=== PATIENT | male | born 1975 | race Caucasian/White ===

== ENCOUNTER 2021-05-03 13:42 | Emergency (ER) | payer OTHER ==
[~2021-05-03] VITALS: Ht 177.8 cm; Wt 113.4 kg
[~2021-05-03 13:42] MED LIST: BUSPIRONE HCL10 MG PO; VENTOLIN HFA 1818 GM INH
[2021-05-03] MEDS ORDERED: ALLOPURINOL 10100 M3 PO (13:53)
[2021-05-03] MEDS ORDERED: WELLBUTRIN SR150 MG PO (13:53)
[2021-05-03] MEDS ORDERED: CRESTOR20 MG PO (13:53)
[2021-05-03 14:31] LABS: ABSOLUTE NEUTROPHILS 5.8 thou/uL (1.4-8.2); BASOPHILS 0.9 % (0.0-2.0); EOSINOPHILS 3.7 % (0.0-3.0); HEMATOCRIT 46.4 % (42.0-52.0); HEMOGLOBIN 15.8 gm/dL (14.0-18.0); LYMPHOCYTES 19.6 % (24.0-44.0); MCH 29.7 pg (26.0-34.0); MCV 87.5 fL (80.0-100.0); MONOCYTES 6.3 % (1.0-8.0); PLATELET COUNT 219 thou/uL (150-400); POLYS 69.5 % (36.0-66.0); RDW 14.6 % (10.5-14.5); WBC 8.3 thou/uL (4.0-11.0)
[2021-05-03 15:07] LABS: ANION GAP 9 mmol/L (7-16); BUN 10 mg/dL (7-18); CALCIUM 9.1 mg/dL (8.5-10.1); CHLORIDE 102 mmol/L (98-107); CO2 29 mmol/L (21-32); CREATININE 1.1 mg/dL (0.7-1.3); GLUCOSE 96 mg/dL (74-106); POTASSIUM 3.9 mmol/L (3.5-5.1); SODIUM 140 mmol/L (136-145)
[2021-05-03 15:17] LABS: ALBUMIN 4.3 g/dL (3.4-5.0); SGOT 18 U/L (15-37); SGPT 27 U/L (30-65); TOTAL BILIRUBIN 0.7 mg/dL (0.2-1.0); TOTAL PROTEIN 7.5 g/dL (6.4-8.2); TROPONIN-I <0.06 ng/mL (<0.06)
[2021-05-03 15:59] VITALS: BP 134/69
--- NOTE | 2021-05-04 07:50 | EKG ---
[address] [address] [place] [address] ELECTROCARDIOGRAM REPORT Name: JOSE BOYDMIA LANGFORDDANNI Room #: [facility] [id number] Admission: 05/03/21 Attend Phys: Discharge: 05/03/21 Date of : 73 Report #: [id number] [facility] ED Test Date: 2021-05-03 Test Time: 14:01:34 Pat Name: ESE BOYD Department: Room: Gender: It [employer] Development Manager: : 1975 Requested By: Donato Huff Order Number: [id number] MD: Raúl Villanueva Measurements Intervals [place] Rate: 64 P: 40 AR: 165 QRS: 13 QRSD: 106 T: 36 QT: 380 QTc: 392 Interpretive Statements Sinus rhythm RSR' in V1 or V2, right VCD or RVH Compared to ECG 01/15/2015 03:05:16 Right ventricular hypertrophy now present RSR' in V1 or V2 now present Electronically Signed On 05-04-2021 7:50:06 CDT by Raúl Villanueva [email or web address] <ELECTRONICALLY SIGNED> By: Raúl Villanueva MD, [facility] 05/04/21 0750 1401 140 Raúl Villanueva MD, [facility] /EPI
== END 2021-05-03 16:01 | disposition home or self-care (01) ==
LOC: ER 13:42
PROVIDERS: Emergency Medicine
DX: R55 Syncope and collapse (principal); R51.9 Headache, unspecified; Z79.899 Other long term (current) drug therapy; Z20.822 Contact with and (suspected) exposure to COVID-19